=== PATIENT | male | born 1970 | race Caucasian/White ===

== ENCOUNTER 2024-04-30 06:27 | Emergency (ER) | payer OTHER ==
[~2024-04-30] VITALS: Ht 188 cm; Wt 118.2 kg
[2024-04-30 06:33] VITALS: TEMP 97.2
[2024-04-30] MEDS: ketorolac trometh 30MG/ML vial 30 MG/ML VIAL IM ONE (07:21)
[2024-04-30] MEDS ORDERED: iohexol 300mg/ml 100ml inj. ONE (07:55)
[2024-04-30] MEDS ORDERED: OXYC-145 PO (09:58)
[2024-04-30 10:07] VITALS: BP 128/70; PULSE 65; RESP 18; O2SAT 97
== END 2024-04-30 10:18 | disposition home or self-care (01) ==
LOC: ER 06:28
DX: S22.31XA Fracture of one rib, right side, initial encounter for closed fracture (principal); M25.511 Pain in right shoulder; Z88.2 Allergy status to sulfonamides; W01.0XXA Fall on same level from slipping, tripping and stumbling without subsequent striking against object, initial encounter; Y93.01 Activity, walking, marching and hiking; Y92.89 Other specified places as the place of occurrence of the external cause; Y99.8 Other external cause status
CPT/HCPCS: 71101; 71260; 73030; 74177; 96374; 99285; J1885; Q9967

== ENCOUNTER 2025-04-13 23:11 | Inpatient (IN) | payer OTHER, SELFPAY ==
[~2025-04-13] VITALS: Ht 188 cm; Wt 114.5 kg
[~2025-04-13 23:11] MED LIST: OXYC-145 PO
[2025-04-14 00:48] LABS: MEAN PLATELET VOLUME 7.7 FL (7.4-10.4); RED CELL DISTRIBUTION WIDTH 13.7 % (11.5-14.5)
[2025-04-14 01:04] LABS: CREATININE 0.98 MG/DL (0.60-1.10); TOTAL CARBON DIOXIDE 27.0 MMOL/L (24-32); eCRCL 99 ML/MIN; eGFR 79 ML/MIN
[2025-04-14 02:06] LABS: LEUKOCYTE ESTERASE ,URINE NEGATIVE (Neg); NITRITES, URINE NEGATIVE (Neg); OCCULT BLOOD,URINE NEGATIVE (Neg)
[2025-04-14 02:07] LABS: UA COLLECTION TYPE CLN CATCH MIDSTREAM
--- NOTE | 2025-04-14 02:17 | Physician Documentation ---
History of Present Illness Chief Complaint: Abdominal Pain w/vomiting Stated Complaint: ABD PAIN Time Seen by MD: 02:15 OK to notify your PCP?: Yes Primary Medical Doctor: ABHI Source: patient, RN/MD, RN notes reviewed Mode of Arrival: POV Exam Limitations: no limitations HPI This patient has a longstanding history of gallstones. Never really had problems eating necessarily. The patient states after dinner on giving he started having increasing pain but then woke up today with severe epigastric pain that was radiating to his back. The states his pain 7/10 he has vomited a few times. He has also had some chest discomfort. He denies any new medications no fevers or chills no other complaints. Medication Reconciliation Allergies: Coded Allergies: Sulfa (Sulfonamide Antibiotics) (Verified Allergy, Unknown, 04/30/24) Scheduled PRN Oxycodone HCl/Acetaminophen (Percocet 5-325 mg Tablet), 1-2 TABLET PO Q4H PRN for pain Past Medical History Past Medical History: Hypertension Past Surgical History: no surgical history Smoking Status: Never smoker Alcohol Use: None Drug Use: none Review of Systems All Other Systems at this time: Reviewed and Negative Physical Exam Vital Signs: RN Vital Signs have been reviewed: Yes, Temperature: 98.1, Source: Temporal, Heart Rate: 65, Respiratory Rate: 23, BP: 139/81, Pulse Oximetry: 94, Weight: 114.500 Oxygen Flow Rate: 0 Physical Exam General: The patient is well developed, well nourished, nontoxic appearing and is in no acute distress. Skin: [place], warm and dry with no rashes. HEENT: Head was normocephalic and atraumatic. Eyes - pupils equal, round, reactive to light and accommodation. Extraocular movements were intact. Conjunctivae were nonicteric. Ears - bilateral tympanic membranes were normal. The mouth and oropharynx were clear with moist mucous membranes. There were no pharyngeal exudates or erythema. Neck: Supple and nontender. There was no jugular venous distention, lymphadenopathy, thyromegaly or masses. Chest: Clear to auscultation bilaterally without wheezes, rales or rhonchi. No accessory muscle use. No dullness to percussion. Heart: Rate regular and rhythmic. S1, S2. No murmurs. Palpation of the chest wall was normal. No rubs or thrills. Abdomen: Right upper quadrant epigastric tenderness to palpation. Positive bowel sounds. No guarding or rebound. No hepatosplenomegaly or palpable masses. Clinically soft abdomen Extremities: No cyanosis, clubbing or edema. The patient moves all extremities. Pulses were equal and symmetric. Neurologic: Motor sensory grossly intact Psychologic: The patient was oriented to person, place and time. The patient demonstrated appropriate judgement and insight. Progress Results/Orders Reviewed/noted all lab results: Yes Results/Orders Orders - KRISTAN SMYTH MD Electrocardiogram (04/13/25 ) Completed Orders - KRISTAN SMYTH MD Urinalysis, Cult If Indicated (04/13/25 23:59) Cbc/Diff (04/13/25 23:59) BMP (04/13/25 23:59) Lipase (04/13/25 23:59) CMP (04/13/25 23:59) Vital Signs 04/13/25 04/14/25 04/14/25 04/14/25 23:54 00:12 00:12 01:45 Temp 98.1 Pulse 63 65 Resp 18 18 23 B/P (MAP) 145/78 139/81 (100) Pulse Ox 98 94 O2 Flow Rate 0 Laboratory Tests Test 04/14/25 00:34 04/14/25 01:45 White Blood Count 16.7 H Red Blood Count 5.29 Hemoglobin 14.8 Hematocrit 43.5 Mean Corpuscular Volume 82.4 Mean Corpuscular Hemoglobin 28.0 Mean Corpuscular Hemoglobin Concent 34.0 Red Cell Distribution Width 13.7 Platelet Count 316 Mean Platelet Volume 7.7 Neutrophils (%) (Auto) 86.5 H Lymphocytes (%) (Auto) 7.2 L Monocytes (%) (Auto) 5.5 Eosinophils (%) (Auto) 0.4 Basophils (%) (Auto) 0.4 Neutrophils # (Auto) 14.4 H Lymphocytes # (Auto) 1.2 Monocytes # (Auto) 0.9 Eosinophils # (Auto) 0.1 Basophils # (Auto) 0.1 CBC Comment Sodium Level 138 Potassium Level 3.6 Chloride Level 104 Carbon Dioxide Level 27.0 Anion Gap 7 L Blood Urea Nitrogen 17 Creatinine 0.98 Estimated GFR/1.73 m2 79 BUN/Creatinine Ratio 17.3 Glucose Level 97 Calcium Level 8.4 L Total Bilirubin 0.4 Aspartate Amino Transf (AST/SGOT) 18 Alanine Aminotransferase (ALT/SGPT) 23 Alkaline Phosphatase 58 Total Protein 8.0 Albumin 3.8 Globulin 4.2 Albumin/Globulin Ratio 0.9 L Lipase > 375 H Chemistry Comments Urine Specimen Description Cln catch midstream Urine Color Yellow Urine Clarity Clear Urine pH 6.5 Urine Specific [place] 1.020 Urine Protein Negative Urine Glucose (UA) Negative Urine Ketones Negative Urine Occult Blood Negative Urine Nitrite Negative Urine Bilirubin Negative Urine Urobilinogen 0.2 Urine Leukocyte Esterase Negative Urine Culture Indicated Not ind Volume Urine Centrifuged 10 ml Urine Comment Re-Evaluation Re-Evaluation : Re-Evaluation: Improved Progress Patient improved with pain medication. EKG/XRAY/CT/US/VASC/MRI EKG : Intepreting Monitor?: Yes Additional Comment 5 minutes after midnight. EKG shows normal sinus rhythm heart rate 62, QTC 407, good R-wave progression normal axis normal intervals. CT : CT: abdomen/pelvis With Contrast?: Yes Impression Exam: CT CT ABDOMEN PELVIS W/ IV CONTRAST History: ABD PAIN COMPARISON: CT CT CHEST ABDOMEN PELVIS IV CON on DOS: 04/30/24 Technique: Multidetector spiral CT of the abdomen and pelvis was performed from lung bases to pubic symphysis. Intravenous contrast was administered during this examination. Portal venous imaging was obtained. Axial, coronal and sagittal multiplanar reformats were performed by the technologist on a separate wo rkstation. Radiation Dose : 1. Abdomen/Pelvis: CTDIvol 36.47 mGy, DLP 1939.37 mGy*cm. CONTRAST: Type of contrast: Omniscan 300 Contrast injected: 100 ml Findings: Lung Bases: Moderate right pleural effusion and bibasilar atelectasis. Cardiomegaly. No pericardial effusion. Liver: The liver is enlarged, measuring 20.9 cm in craniocaudal dimension. No focal lesions. Normal hepatic vascular enhancement. Gallbladder and Biliary Tree: Cholelithiasis and gallbladder distention. Spleen: Unremarkable Pancreas: Moderate diffuse peripancreatic inflammatory change and free fluid consistent with sequelae of Acute pancreatitis. No definite evidence of pseudocyst, abscess or parenchymal necrosis. Adrenal Glands: Unremarkable Kidneys: No hydronephrosis. Bladder: Unremarkable Bowel: The stomach is grossly normal in appearance. Retained colorectal stool. Small bowel and colon are otherwise normal in caliber and distribution. The appendix is normal. Ascites: Absent Lymphadenopathy: No mesenteric, retroperitoneal or periportal lymphadenopathy. Abdominal Wall and Mesentery: Small fat containing umbilical hernia. Vasculature: The visualized abdominal aorta is normal in size and caliber. Abdominal and pelvic vessels demonstrate normal enhancement. Pelvic Organs: Unremarkable. Bilateral fat containing inguinal hernias. Musculoskeletal: No aggressive focal bony lesions, acute fractures or dislocation. IMPRESSION: 1. Acute pancreatitis without definite evidence of pseudocyst, abscess or parenchymal necrosis. 2. Cholelithiasis and gallbladder distention. 3. Hepatomegaly. 4. Moderate right pleural effusion and bibasilar atelectasis. 5. Retained colorectal stool. Radiation optimization: All CT scans at this facility use at least one of these dose optimization techniques: automated exposure control mA and/or kV adjustment per patient size (includes targeted exams where dose is matched to clinical indication) or iterative reconstruction. Medical Decision Making Additional information obtaine: old records Findings Patient was seen and examined. Patient is given reassurance. Patient's laboratory work shows a leukocytosis of 16.7 with a left shift of 86.5 no anemia patient was given Zosyn after blood cultures were obtained. Patient's procalcitonin is negative lactic acid is negative. Chemistries within normal limits. LFTs within normal limits except lipase is greater than 375 urine also was within normal limits cat scan showed gallstone pancreatitis. Patient was then admitted to the hospitalist service for further workup and care. Patient received fluids antibiotics pain meds. Continuous cardiac nurse specialist interpretation shows normal sinus rhythm heart rate 60s, no ectopy, normal, my interpretation. Pulse oximetry monitor interpretation shows normal oxygenation at 95% room air, normal, my interpretation. Differential Dx:Considerations: Aortic dissection, Appendicitis, Bowel obstruction, Cholangitis, Cholelithasis, Constipation, Diverticular disease, Esophageal rupture, Esophagitis, Gastritis/PUD, Gastroenteritis, GI hemorrhage, Hernia, Hepatitis, Inflammatory BD, Ischemic bowel, Pancreatitis, Porphyria, T esticular torsion, Trauma, intraabdominal, Urinary obstruction, Urinary tract infection, Urolithiasis Departure Disposition: ADMITTED INPATIENT Admitted to Inpatient Unit: yes, to hospitalist Admission Level of Care: PCU with Tele Impression: Primary Impression: Acute gallstone pancreatitis Condition: Guarded Referrals: NO PRIMARY CARE PROVIDER (PCP) Education Educated: Patient Educated regarding: diagnosis Signature Scribe Signature: The note accurately reflects work and decisions made by me.Kristan Smyth MD 04/14/25 04:02 Attestation: The note accurately reflects work and decisions made by me.Kristan Smyth MD 04/14/25 04:02 KRISTAN SMYTH MD Apr 14, 2025 02:17
[2025-04-14] MEDS ORDERED: iohexol 300mg/ml 100ml inj. ONE (02:26)
[2025-04-14] MEDS: piperacillin/tazo 3.375gm/50ml 50 ML IV ONE (02:49)
[2025-04-14] MEDS: normal saline 1000ML IV soln IVB ONE (02:50)
--- NOTE | 2025-04-14 03:27 | RADIOLOGY REPORT ---
Exam: CT CT ABDOMEN PELVIS W/ IV CONTRAST History: ABD PAIN COMPARISON: CT CT CHEST ABDOMEN PELVIS IV CON on DOS: 04/30/24 Technique: Multidetector spiral CT of the abdomen and pelvis was performed from lung bases to pubic symphysis. Intravenous contrast was administered during this examination. Portal venous imaging was obtained. Axial, coronal and sagittal multiplanar reformats were performed by the technologist on a separate workstation. Radiation Dose : 1. Abdomen/Pelvis: CTDIvol 36.47 mGy, DLP 1939.37 mGy*cm. CONTRAST: Type of contrast: Omniscan 300 Contrast injected: 100 ml Findings: Lung Bases: Moderate right pleural effusion and bibasilar atelectasis. Cardiomegaly. No pericardial effusion. Liver: The liver is enlarged, measuring 20.9 cm in craniocaudal dimension. No focal lesions. Normal hepatic vascular enhancement. Gallbladder and Biliary Tree: Cholelithiasis and gallbladder distention. Spleen: Unremarkable Pancreas: Moderate diffuse peripancreatic inflammatory change and free fluid consistent with sequelae of Acute pancreatitis. No definite evidence of pseudocyst, abscess or parenchymal necrosis. Adrenal Glands: Unremarkable Kidneys: No hydronephrosis. Bladder: Unremarkable Bowel: The stomach is grossly normal in appearance. Retained colorectal stool. Small bowel and colon are otherwise normal in caliber and distribution. The appendix is normal. Ascites: Absent Lymphadenopathy: No mesenteric, retroperitoneal or periportal lymphadenopathy. Abdominal Wall and Mesentery: Small fat containing umbilical hernia. Vasculature: The visualized abdominal aorta is normal in size and caliber. Abdominal and pelvic vessels demonstrate normal enhancement. Pelvic Organs: Unremarkable. Bilateral fat containing inguinal hernias. Musculoskeletal: No aggressive focal bony lesions, acute fractures or dislocation. IMPRESSION: 1. Acute pancreatitis without definite evidence of pseudocyst, abscess or parenchymal necrosis. 2. Cholelithiasis and gallbladder distention. 3. Hepatomegaly. 4. Moderate right pleural effusion and bibasilar atelectasis. 5. Retained colorectal stool. Radiation optimization: All CT scans at this facility use at least one of these dose optimization techniques: automated exposure control mA and/or kV adjustment per patient size (includes targeted exams where dose is matched to clinical indication) or iterative reconstruction.
[2025-04-14] MEDS ORDERED: FENO145T26 PO (04:42)
[2025-04-14] MEDS ORDERED: AMLO-708 PO (04:42)
[2025-04-14] MEDS ORDERED: magnesium sulf-water 2g/50mL 50 ML IV PRN (04:50)
[2025-04-14] MEDS ORDERED: magnesium sulf-water 4G/100mL 100 ML IV PRN (04:50)
[2025-04-14] MEDS ORDERED: magnesium hydroxide 30ml (MOM) UD suspension PO PRN (04:50)
[2025-04-14] MEDS ORDERED: magnesium Cl slow-release 64mg tablet PO PRN (04:50)
[2025-04-14] MEDS ORDERED: potassium Cl 20 mEq SR tablet PO PRN ×2 (04:50)
[2025-04-14] MEDS ORDERED: mag hydrox/Alum hydrox/simeth 30ml oral suspension PO PRN (04:50)
[2025-04-14] MEDS ORDERED: ondansetron/PF 4mg/2ml inj IV PRN (04:50)
--- NOTE | 2025-04-14 05:01 | HISTORY AND PHYSICAL-Residence ---
History & Physical Providers to CC Resident Creating Document: FRANCIS RAO, CARLYLE ~ History of Present Illness Primary Medical Doctor: ABHI Reason for Admit\Complaint: Abdominal pain History of Present Illness This is a 54-year-old male with medical history of hypertension, hyperlipidemia presents to the ED with complaints of abdominal pain. Patient reports that he started having epigastric pain after he finished having his dinner on night. Pain was 3/10 in intensity was radiating to the back, burning/tightness type of pain, was on and off until Tuesday when it became constant in nature. Patient did vomit 3-4 times since the pain started, vomitus mainly containing clear fluid, no food no blood seen. Patient did have his full meals on Tuesday with no associated discomfort but could not eat anything from Tuesday due to pain. Just before arriving to the ED receiving his pain medication he had a pain of 7/10 in intensity. Patient says that this is the 1st episode he is experiencing of this kind, never before had similar complaints. Patient denies any complaints of chest pain, palpitations, heartburn, reflux symptoms. Patient reports that a year ago imaging was done on him when he had rib injuries, and was told that he had gallstones. Allergies: Coded Allergies: Sulfa (Sulfonamide Antibiotics) (Verified Allergy, Unknown, 04/30/24) Home Medications Home Medications Active Reported Fenofibrate (Fenofibrate Nanocrystallized) 145 Mg Tablet 1 Tab PO DAILY Amlodipine Besylate 10 Mg Tablet 1 Tab PO DAILY Past Medical History Past Medical History Hypertension Hyperlipidemia Past Surgical History Surgical History Comment No significant surgical history Past Social History Social History Comment Patient drinks alcohol socially, mostly beer once a while. Patient never smoked No illicit drug use Patient lives at home with his PCP- [facility] Alcohol Use: None Drug Use: None ROS All Other Systems: Reviewed and Negative ROS Constitutional: Denies: no symptoms reported, Eyes: Denies: no symptoms reported ENT: Denies: no symptoms reported Respiratory: Denies: No symptoms reported Cardiovascular: Denies: No symptoms reported Gastrointestinal: Denies: MILD EPIGASTRIC PAIN Genitourinary: Denies: no symptoms reported Neurological: Denies: no symptoms reported Musculoskeletal: Denies: No symptoms reported Endocrine: Denies: no symptoms reported Exam Vitals: Vital Signs Date Time Temp Pulse Resp B/P (MAP) Pulse Ox O2 Delivery O2 Flow Rate FiO2 04/14/25 04:00 55 16 121/73 (89) 93 04/14/25 00:12 0 04/13/25 23:54 98.1 General: General: Awake, alert, oriented, not in acute distress, comfortably resting HEENT: Conjunctive are pink, sclerae clear, no icterus, Neck: Supple, no JVD, no lymphadenopathy. Chest: Normal vesicular breath sounds heard, no wheezing, crackles. Cardiovascular: S1-S2 heard no gallops, no rubs, no murmurs Abdomen: soft, obese, no tenderness, no guarding, no rigidity, no rebound tenderness. Ordoñez sign negative Extremities: No edema, no cyanosis, peripheral pulses well felt Central Nervous System: No focal neurological deficits Skin: Warm and dry. Diagnostic Data Last Recorded Lab Results: 04/14/25 0034 04/14/25 0034 Advance Care Planning Advanced Care plannin - 30 Minutes (Full code) Additional Plan Acute abdominal pain Likely due to underlying gallstone pancreatitis Cholelithiasis -Patient is meeting SIRS criteria with increased respiratory rate and WBC count, but is otherwise hemodynamically stable -WBC count 16.7, procal normal -lipase elevated > 375. We will trend lipase daily. -lactic acid normal -liver enzymes , bilirubin, alkaline phosphatase normal -CT abdomen shows Hepatomegaly Cholelithiasis and gallbladder distention Acute pancreatitis without definite evidence of pseudocyst, abscess or parenchymal necrosis However CT does not show any details about the bile duct. -started the patient on fluids LR 150 cc/hour -currently patient is NPO, advance diet as tolerated. -patient on pain control medications and antiemetics Hypertension- Currently blood pressure within the normal range Continue home medications once med rec is done Hyperlipidemia- Lipid panel has been ordered please follow-up Continue medications after med rec is done Disposition- patient being admitted to the PCU floor, currently he is hemodynamically stable, advance diet as tolerated, lipase to be trended daily. Continue to monitor him. Code status: Full code DVT profile: Subcu Heparin Diet: NPO Francis Reddivari PGY-1 Fusaro Addendum #1 Neuro: - Monitor for delirium #2 CV: The patient has a history of hypertension - If hemodynamically stable, continue home BP medications - Monitor blood pressure routinely to assess control #3 Pulm: - Encourage incentive spirometry use - Maintain O2 saturation >92% #4 GI: The patient has evidence of gallstone pancreatitis; differential diagnosis includes idiopathic, alcohol-related, drug-related, and hypertriglyceridemia. - Initiate IV fluids; monitor fluid status - Monitor fingerstick glucose levels - Measure triglyceride levels to assess for hypertriglyceridemia - Keep patient NPO - GI consult #5 Renal: - Monitor renal function for signs of acute kidney injury - Replete electrolytes as necessary #6 ID: - Monitor for signs of infection #7 Endo: - Maintain fingerstick glucose between 150-180 mg/dL The patient has a history of hyperlipidemia - Continue statin #8 Heme/Onc: - Monitor for bleeding and thrombosis - Keep hemoglobin >7 g/dL and platelets >10 x 10^3/L #9 PPx: - Administer chemical DVT prophylaxis unless contraindicated I saw this patient and completed a full visual exam via audio-visual HIPAA compliant technology. Date of Service: Apr 14, 2025 Billing Provider: SABA TURNER MD, PREETHI, RES Apr 14, 2025 05:01 SABA TURNER MD Apr 14, 2025 07:34
[2025-04-14] MEDS: ringers solution, lacted 1,000 ML IV SCH (06:00)
--- NOTE | 2025-04-14 08:02 | RADIOLOGY REPORT ---
INDICATION: RUQ pain TECHNIQUE: Multiple real-time sonographic images of the abdomen were obtained with attention on the right upper quadrant. COMPARISON: CT CT ABDOMEN PELVIS W/ IV CONTRAST on DOS: 04/14/25, CT CT CHEST ABDOMEN PELVIS IV CON on DOS: 04/30/24 FINDINGS: The liver is enlarged and demonstrates increased in echogenicity. Main portal vein is patent and demonstrates hepatopetal flow. No liver lesions. Normal liver surface contour. No intrahepatic biliary ductal dilatation is noted. The gallbladder wall measures 2.6 mm and is unremarkable. Cholelithiasis. Negative sonographic Ordoñez's sign. No pericholecystic fluid or edema. The common duct measures 0.6 cm and is unremarkable. The right kidney measures 11.2 cm. No hydronephrosis. The pancreas is not well visualized due to obscuration from bowel gas. IMPRESSION: Cholelithiasis without sonographic evidence of acute cholecystitis. Hepatomegaly and hepatic steatosis.
[2025-04-14] MEDS: K and/or MAG REPLACEMENT MC SCH (08:14)
[2025-04-14] MEDS: docusate sod 100mg capsule PO SCH (08:18)
[2025-04-14] MEDS: heparin, porcine 5000 units/ml vial SQ SCH (08:19)
[2025-04-14] MEDS ORDERED: NORMAL SALINE IV ONE (08:25)
[2025-04-14] MEDS ORDERED: SINCALIDE IV ONE (08:25)
[2025-04-14] MEDS ORDERED: morphine 4 MG/ML inj SYRINge IV PRN (09:15)
--- NOTE | 2025-04-14 11:13 | ELECTROCARDIOGRAPH REPORT ---
[facility] Test Date: 2025-04-14 Test Time: 00:05:09 Pat Name: LOBO GRIGSBY Department: [facility] Patient ID: [facility]-[id number] Room: [address] Gender: M Voice Instructor: : 1970 Requested By: KRISTAN SMYTH Order Number: [id number] Reading MD: Dr. Kristan Smyth Measurements Intervals [address] Rate: 62 P: 52 CT: 139 QRS: 0 QRSD: 96 T: 2 QT: 400 QTc: 407 Interpretive Statements Sinus rhythm Probable left atrial enlargement Baseline wander in lead(s) V3 Electronically Signed On 04-14-2025 18:30:[address] Kristan Smyth Please click the below link to view image of tracing.
[2025-04-14 11:46] VITALS: RESP 16; O2SAT 97
[2025-04-14 11:51] VITALS: BP 141/80; PULSE 62; RESP 16; TEMP 97.7; O2SAT 97
[2025-04-14] MEDS ORDERED: LISI20TA28 PO (12:21)
[2025-04-14] MEDS ORDERED: HYDROcodone/acetaminophen 5mg/325mg tablet PO PRN (12:30)
[2025-04-14] MEDS: HYDROcodone/acetaminophen 10/325mg tab PO PRN (13:01)
--- NOTE | 2025-04-14 15:42 | PROGRESS NOTE ---
Progress Note ID Providers to CC ~ Progress Note Progress Note: The patient was admitted in the gold cutter with gallstone pancreatitis and a white blood cell count 42670 with a left shift and a normal lactic acid the patient is afebrile is on Zosyn. The patient informs me last April that has discovered that the patient has a gallstones which was an incidental finding as the patient went to the ED for rib fractures the patient has been asymptomatic however after Thanksgiving dinner the patient developed a stabbing pain in his right upper quadrant I sent a text to Dr. Gamino his investigate if he wanted a HIDA scan for which I received response no HIDA scan. The patient is liver function tests and bilirubin are normal and both on the CT scan of the abdomen and pelvis and the abdominal ultrasound the common bile duct was normal diameter that is the patient does not have choledocholithiasis. That has no gallbladder wall thickening however due to the elevated white blood cell count the patient is on IV Zosyn- the patient is started on a clear liquid diet and will be advanced as tolerated to a very low-fat diet as the current recommendations for the past couple of years is two advanced diet as tolerated for acute pancreatitis however depending on the timeframe the doctor Hanny wants to take the patient to surgery obviously the patient will then need to be NPO. Gen. No acute distress alert and oriented 4 Lungs clear to ascultation bilaterally, no wheezes rales or rhonchi appreciated Heart normal sinus rhythm no murmurs rubs or clicks noted Abdomen soft mild right upper quadrant tenderness with a positive Ordoñez sign bowel sounds are normoactive Lower extremities no clubbing cyanosis, nor edema appreciated bilaterally Not an billable encounter- the patient was admitted after midnight. ABELARDO PATTERSON DO Apr 14, 2025 15:42
[2025-04-14] MEDS: piperacillin/tazo 4.5gm/100ml 100 ML IV SCH (16:10)
[2025-04-14] MEDS ORDERED: NEBI5TAB13 PO (16:19)
[2025-04-14 18:00] VITALS: BP 128/76; PULSE 67; RESP 17; TEMP 98.3; O2SAT 94
[2025-04-14 20:00] VITALS: RESP 17; O2SAT 94
[2025-04-14 22:00] VITALS: BP 130/75; PULSE 74; RESP 16; TEMP 98; O2SAT 94
[2025-04-15] VITALS (17 sets, daily range): BP systolic 134–198; BP diastolic 73–108; PULSE 73–84; RESP 10–27; TEMP 97.6–99.6; O2SAT 93–98
[2025-04-15 06:11] LABS: MEAN PLATELET VOLUME 8.4 FL (7.4-10.4); RED CELL DISTRIBUTION WIDTH 13.8 % (11.5-14.5)
[2025-04-15 06:35] LABS: CHOL/HDL RATIO 3.6 (0.00-4.99); CREATININE 1.04 MG/DL (0.60-1.10); LDL CHOLESTEROL 71 MG/DL (50-100); TOTAL CARBON DIOXIDE 26.5 MMOL/L (24-32); eCRCL 93 ML/MIN; eGFR 74 ML/MIN
[2025-04-15 07:22] LABS: PRE OP INR 1.1 INR; PRE OP PARTIAL THROMB. TIME 28.0 SECONDS (22-32); PRE OP PROTIME 11.0 SECONDS (9.0-12.0)
[2025-04-15] MEDS: potassium Cl 40MEQ/1/2NS 520ml 520 ML IV PRN (07:43)
--- NOTE | 2025-04-15 08:51 | RADIOLOGY REPORT ---
CHEST RADIOGRAPH Indication: PRE OP Technique: Single frontal view of the chest was obtained Comparison: CT CT CHEST ABDOMEN PELVIS IV CON on DOS: 04/30/24, DI UNI RIBS WITH PA CHEST on DOS: 04/30/24 FINDINGS: Lines and Tubes: None Lungs: No focal consolidation. Pleura: Moderate right pleural effusion No pneumothorax. Cardiomediastinal contours: Unremarkable Bones: No acute osseous abnormality. IMPRESSION: Moderate right pleural effusion
--- NOTE | 2025-04-15 10:19 | ELECTROCARDIOGRAPH REPORT ---
[facility] Test Date: 2025-04-15 Test Time: 10:16:56 Pat Name: LOBO GRIGSBY Department: [facility]N Room: [place] [address] [address] Gender: M Drafter (Cad) Electronic: VINCE : 1970 Requested By: MERCY FOLEY Order Number: [id number] Reading MD: Dr. SHIRA Steward Measurements Intervals [place] Rate: 72 P: 65 WV: 136 QRS: 48 QRSD: 93 T: 27 QT: 375 QTc: 411 Interpretive Statements Sinus rhythm Electronically Signed On 04-15-2025 17:34:[address] SHIRA Steward Please click the below link to view image of tracing.
--- NOTE | 2025-04-15 15:18 | PROGRESS NOTE ---
Progress Note ID Providers to CC ~ Progress Note Progress Note: pt seen and examined-findings consistent with gallstone pancreatitis-pt needs robo marina-possible open-discussed procedure including risks/benefits/alternatives MERCY FOLEY MD Apr 15, 2025 15:18
[2025-04-15] MEDS: dextrose 50%-water 50ml dispensing syringe IV ONE ×3 (18:30→18:46)
[2025-04-15] MEDS ORDERED: BUPIVAcaine 2.5mg/ml inj 50ml vial (contains preservative) ONE (19:59)
[2025-04-15] MEDS ORDERED: INDOCYANINE GREEN 25 MG/10 ML VIAL IV ONE (19:59)
[2025-04-15] MEDS ORDERED: labetalol 20mg/4ml (5mg/ml) syringe IV PRN (20:05)
[2025-04-15] MEDS ORDERED: morphine 4 MG/ML inj SYRINge IV PRN (20:05)
[2025-04-15] MEDS ORDERED: ondansetron/PF 4mg/2ml inj IV PRN ×2 (20:05→21:20)
[2025-04-15] MEDS: ringers solution, lacted 1,000 ML IV SCH (20:05)
[2025-04-15] MEDS ORDERED: HYDROmorphone/PF 0.2 MG/ML SYRINGE IV PRN ×2 (20:05)
--- NOTE | 2025-04-15 20:06 | PROGRESS NOTE ---
Daily Progress Note Providers to CC ~ Antibiotic Timeout Antibiotic Ordered?: Yes Subjective Was seen in presence of his today . patient was NPO waiting to go for the surgical procedure for gallstone pancreatitis with Objective Vital Signs Date Time Temp Pulse Resp B/P (MAP) Pulse Ox O2 Delivery O2 Flow Rate FiO2 04/15/25 18:29 97.5 81 10 95 04/15/25 10:19 140/83 (102) Room Air 04/15/25 09:34 0.0 Result Diagram: 04/15/2542604/15/25426 General-patient not in any acute distress, alert awake oriented, age- appropriate, looks comfortable HEENT-atraumatic normocephalic, neck supple without elevated JVD, no thyromegaly or carotid bruit. No lymphadenopathy bilaterally. Eyes-no icterus or pallor seen in eyes Chest-clear to auscultation bilaterally, breathing nonlabored no tachypnea, no wheezing, no crepitation, no crackles. Heart-S1-S2 normal, regular heart rate no murmur Abdomen bowel sounds positive on auscultation, soft nondistended , signs of mild tenderness present over right upper quadrant on palpation, no guarding, no rigidity Skin no active skin rash Neurology-grossly intact, nonfocal alert awake oriented Extremity- no pedal edema able to move all 4 extremities Psychiatry - patient is not confused or agitated cooperated during physical examination Coagulation Studies Laboratory Tests Test 04/15/25 06:42 Prothrombin Time 11.0 SECONDS (9.0-12.0) INR International Normalized Ratio 1.1 INR Activated Partial Thromboplast Time 28 SECONDS (22-32) Problem\Assessment\Plan The patient was admitted for gallstone pancreatitis and a white blood cell count [id number] with a left shift and a normal lactic acid the patient is afebrile is on Zosyn. The patient informs me last April that has discovered that the patient has a gallstones which was an incidental finding as the patient went to the ED for rib fractures the patient has been asymptomatic however after Thanksgiving dinner the patient developed a stabbing pain in his right upper quadrantThe patient is liver function tests and bilirubin are normal and both on the CT scan of the abdomen and pelvis and the abdominal ultrasound the common bile duct was normal diameter that is the patient does not have choledocholithiasis.That has no gallbladder wall thickening however due to the elevated white blood cell count the patient is on IV Zosyn. Acute abdominal pain Likely due to underlying gallstone pancreatitis Cholelithiasis -Patient is meeting SIRS criteria with increased respiratory rate and WBC count, but is otherwise hemodynamically stable -WBC count 16.7, procal normal -lipase elevated > 375. We will trend lipase daily. -lactic acid normal -liver enzymes , bilirubin, alkaline phosphatase normal -CT abdomen shows Hepatomegaly Cholelithiasis and gallbladder distention Acute pancreatitis without definite evidence of pseudocyst, abscess or parenchymal necrosis However CT does not show any details about the bile duct. -started the patient on fluids LR 150 cc/hour -currently patient is NPO, advance diet as tolerated. -patient on pain control medications and antiemetics 04/15-as per Dr. Mcbride patient needs robotic cholecystectomy/possible open cholecystectomy which he discussed with patient Hypertension- Currently blood pressure within the normal range On amlodipine, lisinopril and Nebivolol at home Hyperlipidemia- Lipid panel has been ordered please follow-up On fenofibrate 145 mg at home Patient's current condition is guarded we will continue to follow patient in a.m. further management as recommended by Dr. Gamino . Date of Service: Apr 15, 2025 Billing Provider: SHORTY SINGLETON MD Common Visit Codes: [id number] INP/OBS CARE(HIGH) SHORTY SINGLETON MD Apr 15, 2025 20:06
[2025-04-15] MEDS ORDERED: fentaNYL /PF 50mcg/ml 5ml ampule ONE (20:07)
[2025-04-15] MEDS ORDERED: midazolam 1 mg/ML 2ml injection ONE (20:07)
[2025-04-15] MEDS ORDERED: LIDOcaine 1%/PF 5ML 10 MG/ML VIAL ONE (20:28)
[2025-04-15] MEDS ORDERED: dexamethasone sod phosphate 4mg/ml inj. ONE (20:28)
[2025-04-15] MEDS ORDERED: ondansetron/PF 4mg/2ml inj ONE (20:28)
[2025-04-15] MEDS ORDERED: propofol inj 20 ML IV ONE (20:28)
[2025-04-15] MEDS ORDERED: rocuronium 10mg/ml inj IV ONE (20:28)
[2025-04-15] MEDS: BUPIVAcaine/PF 2.5 mg/ml (0.25%) 30ml vial IJ ONE (21:10)
[2025-04-15] MEDS ORDERED: albuterol 60 PUFF/8GM Inhaler (90mcg/1 puff) IH ONE (21:12)
--- NOTE | 2025-04-15 21:13 | OPERATIVE REPORT ---
Operative Report Providers to CC ~ Date of Procedure: Apr 15, 2025 Pre-Operative Diagnosis: gallstone pancreatitis Post-Operative Diagnosis SAME as PRE-Op Procedure Performed jaimee gray Surgeon: laney Varnisher Apprentice none Anesthesiologist: Hayde Schneider Type of Anesthesia: General Findings: distended gb Estimated Blood Loss: min Specimen Removed: gb MERCY FOLEY MD Apr 15, 2025 21:13
[2025-04-15] MEDS ORDERED: PCA WASTE DOCUMENTATION 1 MG ML MC SCH (21:20)
[2025-04-15] MEDS ORDERED: HYDROcodone/acetaminophen 10/325mg tab PO PRN (21:20)
[2025-04-15] MEDS ORDERED: HYDROmorphone inj. 0.5 MG/0.5 ML DISP.SYRIN IV PRN (21:20)
[2025-04-15] MEDS: acetaminophen 1,000mg/100ml IV 100 ML IV PRN (21:29)
[2025-04-15] MEDS: hydrALAZINE 20mg/ml inj. IV PRN (21:35)
[2025-04-15] MEDS: morphine 4 MG/ML inj SYRINge IV PRN (21:43)
[2025-04-16] VITALS (8 sets, daily range): BP systolic 126–147; BP diastolic 74–81; PULSE 65–81; RESP 14–18; TEMP 96.6–98.3; O2SAT 93–96
--- NOTE | 2025-04-16 03:58 | OPERATIVE REPORT ---
DATE OF SURGERY: 04/15/2025 DICTATING PHYSICIAN: Oleg Gamino MD PREOPERATIVE DIAGNOSIS: Gallstone pancreatitis. POSTOPERATIVE DIAGNOSIS: Gallstone pancreatitis. PROCEDURE PERFORMED: Robotic cholecystectomy. SURGEON: Oleg Gamino MD [employer] SUPERVISOR: Ceci. ANESTHESIA: General/Dr. Hayde Schneider DRAINS: None. INDICATIONS FOR OPERATION: The patient is a 54-year-old male who was seen with complaints of abdominal pain, found to have pancreatitis as well as cholelithiasis, taken to surgery for robotic cholecystectomy. INTRAOPERATIVE FINDINGS: Distended gallbladder. DESCRIPTION OF PROCEDURE: The patient was placed supine on the operating table. After induction of general anesthesia and placement of endotracheal tube, the abdomen was prepped and draped. A subxiphoid incision was then made and Dee port placed using an open technique and pneumoperitoneum was begun by insufflation of CO2. Additional ports were then placed in the lower abdomen. Robot was then brought to the field. Camera port docked, camera placed, camera targeted. Additional ports were then docked and instruments were placed. Abdomen was then explored. Adhesions were then taken down. Gallbladder fundus was grasped and retracted cephalad. Cystic duct identified, isolated, ligated, clipped and divided the cystic artery. The gallbladder was mobilized off the gallbladder fossa. Once hemostasis was found to be adequate, robotic instruments were removed. The robot was undocked and removed from the field. The gallbladder was placed in an Endobag using the laparoscope. Abdomen was then copiously irrigated with a large amount of antibiotic-containing solution. Ports were then removed. Under laparoscopic vision, there was no evidence of active bleeding, final port and camera withdrawn. Hemostasis was found to be adequate. Wounds were closed in layers. Skin was closed with subcuticular stitch. Dressing was applied. The patient was transferred to recovery room in stable condition after reversing from general anesthesia. Oleg Gamino MD TID: [id number] RECEIPT: [id number] JOSE/ELISABETH
[2025-04-16 05:02] LABS: MEAN PLATELET VOLUME 7.9 FL (7.4-10.4); RED CELL DISTRIBUTION WIDTH 13.8 % (11.5-14.5)
[2025-04-16 05:14] LABS: CREATININE 0.97 MG/DL (0.60-1.10); TOTAL CARBON DIOXIDE 25.1 MMOL/L (24-32); eCRCL 100 ML/MIN; eGFR 80 ML/MIN
--- NOTE | 2025-04-16 15:30 | PROGRESS NOTE ---
Progress Note ID Providers to CC ~ Progress Note Progress Note: doing well/home in am MERCY FOLEY MD Apr 16, 2025 15:30
--- NOTE | 2025-04-16 18:52 | PROGRESS NOTE ---
Daily Progress Note Providers to CC ~ Antibiotic Timeout Antibiotic Ordered?: Yes Subjective Patient was seen in his room he is feeling better able to pass gas and able to ambulate. As per Dr. Mcbride likely discharge in a.m. if clinically stable Objective Vital Signs Date Time Temp Pulse Resp B/P (MAP) Pulse Ox O2 Delivery O2 Flow Rate FiO2 04/16/25 10:25 97.9 80 16 136/75 (95) 95 Room Air 04/16/25 02:00 3.0 Result Diagram: 04/16/255 04/16/255 General-patient not in any acute distress, alert awake oriented, age- appropriate, looks comfortable HEENT-atraumatic normocephalic, neck supple without elevated JVD, no thyromegaly or carotid bruit. No lymphadenopathy bilaterally. Eyes-no icterus or pallor seen in eyes Chest-clear to auscultation bilaterally, breathing nonlabored no tachypnea, no wheezing, no crepitation, no crackles. Heart-S1-S2 normal, regular heart rate no murmur Abdomen bowel sounds positive on auscultation, soft nondistended , signs of mild tenderness present over right upper quadrant on palpation, no guarding, no rigidity Skin no active skin rash Neurology-grossly intact, nonfocal alert awake oriented Extremity- no pedal edema able to move all 4 extremities Psychiatry - patient is not confused or agitated cooperated during physical examination Coagulation Studies Laboratory Tests Test 04/15/25 06:42 Prothrombin Time 11.0 SECONDS (9.0-12.0) INR International Normalized Ratio 1.1 INR Activated Partial Thromboplast Time 28 SECONDS (22-32) Problem\Assessment\Plan The patient was admitted for gallstone pancreatitis and a white blood cell count [id number] with a left shift and a normal lactic acid the patient is afebrile is on Zosyn. The patient informs me last April that has discovered that the patient has a gallstones which was an incidental finding as the patient went to the ED for rib fractures the patient has been asymptomatic however after Thanksgiving dinner the patient developed a stabbing pain in his right upper quadrantThe patient is liver function tests and bilirubin are normal and both on the CT scan of the abdomen and pelvis and the abdominal ultrasound the common bile duct was normal diameter that is the patient does not have choledocholithiasis.That has no gallbladder wall thickening however due to the elevated white blood cell count the patient is on IV Zosyn. Acute abdominal pain Likely due to underlying gallstone pancreatitis Cholelithiasis -Patient is meeting SIRS criteria with increased respiratory rate and WBC count, but is otherwise hemodynamically stable -WBC count 16.7, procal normal -lipase elevated > 375. We will trend lipase daily. -lactic acid normal -liver enzymes , bilirubin, alkaline phosphatase normal -CT abdomen shows Hepatomegaly Cholelithiasis and gallbladder distention Acute pancreatitis without definite evidence of pseudocyst, abscess or parenchymal necrosis However CT does not show any details about the bile duct. -started the patient on fluids LR 150 cc/hour -currently patient is NPO, advance diet as tolerated. -patient on pain control medications and antiemetics 04/15-as per Dr. Mcbride patient needs robotic cholecystectomy/possible open cholecystectomy which he discussed with patient 04/16- he is feeling better able to pass gas and able to ambulate. As per Dr. Mcbride likely discharge in a.m. if clinically stable Hypertension- Currently blood pressure within the normal range On amlodipine, lisinopril and Nebivolol at home Hyperlipidemia- Lipid panel has been ordered please follow-up On fenofibrate 145 mg at home Patient's current condition is guarded we will continue to follow patient in a.m. further management as recommended by Dr. Gamino . Date of Service: Apr 16, 2025 Billing Provider: SHORTY SINGLETON MD Common Visit Codes: [id number] INP/OBS CARE(HIGH) SHORTY SINGLETON MD Apr 16, 2025 18:52
[2025-04-16] MEDS: magnesium hydroxide 30ml (MOM) UD suspension PO SCH (21:14)
[2025-04-16] MEDS: HYDROcodone/acetaminophen 5mg/325mg tablet PO PRN (21:50)
--- NOTE | 2025-04-17 01:33 | CONSULTATION ---
DATE OF CONSULTATION: 04/15/2025 DICTATING PHYSICIAN: Oleg Gamino MD REASON FOR CONSULTATION: Evaluation for possible laparoscopic cholecystectomy. HISTORY OF PRESENT ILLNESS: The patient is a 54-year-old male with hypertension, hyperlipidemia, presented to the ER with complaints of abdominal pain for a few days and had an elevated lipase. Workup revealed cholelithiasis. Surgical evaluation is now requested for possible laparoscopic cholecystectomy. The patient states pain is much improved at the present time. Minimal alcohol use at this point in time. of pancreatitis. PAST MEDICAL HISTORY: Hypertension and hyperlipidemia. PAST SURGICAL HISTORY: Negative. HOME MEDICATIONS: Fenofibrate and amlodipine. ALLERGIES: SULFA. SOCIAL HISTORY: Minimal alcohol use. REVIEW OF SYSTEMS: See H and P. PHYSICAL EXAMINATION: GENERAL: The patient is a well-nourished male, in minimal distress. VITAL SIGNS: Unremarkable. HEART: Regular rate and rhythm. LUNGS: Clear to auscultation. ABDOMEN: Benign. EXTREMITIES: Unremarkable. NEUROLOGIC: Nonfocal. LABORATORY DATA: WBC 12.8, hematocrit 38.6, platelet count 271. Chemistries: Lipase is elevated. Total bilirubin is 0.8. IMAGING STUDIES: Ultrasound revealed cholelithiasis. CT abdomen and pelvis revealed pancreatitis with cholelithiasis. IMPRESSION: * Gallstone pancreatitis. * Hypertension. * Hyperlipidemia. RECOMMENDATIONS: Robotic cholecystectomy, possible open. Oleg Gamion MD TID: [id number] RECEIPT: [id number] KB/DIV
[2025-04-17 06:00] VITALS: BP 125/74; PULSE 69; RESP 16; TEMP 97.7; O2SAT 95
[2025-04-17 06:04] LABS: MEAN PLATELET VOLUME 8.0 FL (7.4-10.4); RED CELL DISTRIBUTION WIDTH 13.6 % (11.5-14.5)
[2025-04-17 06:25] LABS: CREATININE 1.15 MG/DL (0.60-1.10); TOTAL CARBON DIOXIDE 30.5 MMOL/L (24-32); eCRCL 84 ML/MIN; eGFR 66 ML/MIN
[2025-04-17 08:00] VITALS: RESP 18; O2SAT 96
[2025-04-17 09:04] VITALS: BP_SYST 125; PULSE 69
[2025-04-17] MEDS ORDERED: ACET-1008 PO (11:38)
[2025-04-17] MEDS ORDERED: PANT40TA54 PO (11:39)
[2025-04-17] MEDS ORDERED: IBUP600T52 PO (11:39)
[2025-04-17] MEDS ORDERED: CIPR-259 PO (11:41)
[2025-04-17] MEDS ORDERED: METR-159 PO (11:41)
--- NOTE | 2025-04-17 16:22 | PROGRESS NOTE ---
Progress Note ID Providers to CC ~ Progress Note Progress Note: doing well/ok to dc MERCY FOLEY MD Apr 17, 2025 16:22
--- NOTE | 2025-04-17 17:05 | PATHOLOGY REPORT ---
[facility] [address] [place] [address] SURGICAL PATHOLOGY REPORT CaseNumber: [id number] Surgeon:Paulino Scott CLINICAL INFORMATION CLINICAL INFORMATION: ABD pain. DIAGNOSIS DIAGNOSIS: GALLBLADDER; ROBOTIC LAPAROSCOPIC CHOLECYSTECTOMY - CHOLELITHIASIS AND CHRONIC CHOLECYSTITIS MICROSCOPIC DESCRIPTION MICROSCOPIC DESCRIPTION: One slide is examined. Performed. GROSS DESCRIPTION GROSS DESCRIPTION: Received in a container of formalin labeled with the patient's name, number, and "gallbladder" is a disrupted gallbladder which measures 8 cm long by 3 cm in diameter. The serosa is smooth and purple-benavides. The surgical bed is unremarkable. Sectioning reveals a moderate amount of viscous dark green bile and a 2.3 cm benavides stone. The mucosa is red and granular with scattered yellow flecks present. A discrete mass lesion is not identified. The wall of the gallbladder measures up to 0.3 cm thick. Hat Liner sections of the neck and wall of the gallbladder are submitted as A1.The time at which the specimen was removed was 2099. The time at which the specimen was placed in formalin was 2108. (ctb) Electronically signed by: Timothy Barber M.D. 04/17/2025 4:31:00 PM
[2025-04-17] MEDS ORDERED: LEVO-65 PO (19:00)
--- NOTE | 2025-04-17 19:04 | DISCHARGE SUMMARY ---
Discharge Summary Providers to CC ~ Discharge Summary Admission Diagnosis: gallstone pancreatitis Hospital Course DATE OF ADMISSION: 04/14/25 DATE OF DISCHARGE:04/17/25 CBC testing done on April 17, 2025 WBC 13.6 hemoglobin 12.8 hematocrit 37.5 platelet count 301. Hemoglobin A1c 6.0. Procalcitonin 0.05 CMP done April 17, 2025 sodium 142 potassium 3.9 creatinine 1.15 GFR 66 AST 46 , normal rest of the liver enzymes. Lipase 114. Lipid panel showing triglyceride 87 total cholesterol 109 LDL 71 HDL 30. Blood culture showed no growth after three days. CHEST,SINGLE VIEWIMPRESSION: Moderate right pleural effusion ULTRASOUND OF ABDOMENIMPRESSION: Cholelithiasis without sonographic evidence of acute cholecystitis. Hepatomegaly and hepatic steatosis. CT ABDOMEN PELVISIMPRESSION: 1. Acute pancreatitis without definite evidence of pseudocyst, abscess or parenc hymal necrosis. 2. Cholelithiasis and gallbladder distention. 3. Hepatomegaly. 4. Moderate right pleural effusion and bibasilar atelectasis. 5. Retained colorectal stool. Discharge Diagnosis\Comment: Acute abdominal pain Likely due to underlying gallstone pancreatitis Cholelithiasis Hypertension Hyperlipidemia Moderate right pleural effusion Operations\Procedures: Robotic cholecystectomy. Consultants: Dr Oleg Gamino MD Complications: None Condition on DC: Stable New Medications: Ibuprofen (Ibuprofen) 600 Mg Tablet 1 TAB PO Q8H for pain for 5 Days, #15 TAB 0 Refills with food Levofloxacin (Levofloxacin) 500 Mg Tablet 500 MG PO DAILY for 5 Days, #5 TAB Metronidazole* (Flagyl*) 500 Mg Tablet 1 TAB PO BID for 5 Days, #10 TAB Pantoprazole Sodium (Pantoprazole Sodium) 40 Mg Tablet.dr 40 MG PO BKF for 7 Days, #7 TAB.SR Changed Medications: Acetaminophen (Tylenol) 325 Mg Tablet 1 TAB PO Q8H PRN for pain or fever for 15 Days, #30 TAB (Changed from: QDAY PRN; 30) Continued Medications: Amlodipine Besylate (Amlodipine Besylate) 10 Mg Tablet 1 TAB PO DAILY Fenofibrate Nanocrystallized (Fenofibrate) 145 Mg Tablet 1 TAB PO DAILY Lisinopril (Lisinopril) 20 Mg Tablet 1 TAB PO DAILY for 30 Days, #30 TAB Nebivolol HCl (Nebivolol HCl) 5 Mg Tablet 5 MG PO DAILY Discharge Summary: The patient was admitted for gallstone pancreatitis and a white blood cell count [id number] with a left shift and a normal lactic acid the patient is afebrile is on Zosyn. The patient informs me last April that has discovered that the patient has a gallstones which was an incidental finding as the patient went to the ED for rib fractures the patient has been asymptomatic however after Than ksgiving dinner the patient developed a stabbing pain in his right upper quadrantThe patient is liver function tests and bilirubin are normal and both on the CT scan of the abdomen and pelvis and the abdominal ultrasound the common bile duct was normal diameter that is the patient does not have choledocholithiasis.That has no gallbladder wall thickening however due to the elevated white blood cell count the patient is on IV Zosyn. Acute abdominal pain Likely due to underlying gallstone pancreatitis Cholelithiasis -Patient is meeting SIRS criteria with increased respiratory rate and WBC count, but is otherwise hemodynamically stable -WBC count 16.7, procal normal -lipase elevated > 375. We will trend lipase daily. -lactic acid normal -liver enzymes , bilirubin, alkaline phosphatase normal -CT abdomen shows Hepatomegaly Cholelithiasis and gallbladder distention Acute pancreatitis without definite evidence of pseudocyst, abscess or parenchymal necrosis However CT does not show any details about the bile duct. -started the patient on fluids LR 150 cc/hour -currently patient is NPO, advance diet as tolerated. -patient on pain control medications and antiemetics 04/15-as per Dr. Mcbride patient needs robotic cholecystectomy/possible open cholecystectomy which he discussed with patient 04/16- s/p robotic cholecystectomy. he is feeling better able to pass gas and able to ambulate. As per Dr. Mcbride likely discharge in a.m. if clinically stable Hypertension- Currently blood pressure within the normal range On amlodipine, lisinopril and Nebivolol at home Hyperlipidemia- Lipid panel has been ordered please follow-up On fenofibrate 145 mg at home Patient is feeling better he has been afebrile and getting discharged home in stable condition. Patient is seen and examined on the day of discharge. All labs, diagnostic workup and discharge plan discussed with patient in detail before her discharge. Dr. Mcbride is okay to discharge patient today. All questions and queries answered to the best of my professional medical knowledge. I heard patient's concerns and address appropriately. Patient was cleared by Physical therapy team for home discharge. sports betting manager Ellie involved in patient's discharge plan. Discharge instructions provided to the patient* Please follow up with PCP. * Dr Gamino to one week. Contact his office for an appointment . * No lifting greater than 10-15 lbs. for two weeks. * Repeat CBC BMP procalcitonin in five days with PCP . General-patient not in any acute distress, alert awake oriented, age- appropriate, looks comfortable HEENT-atraumatic normocephalic, neck supple without elevated JVD, no thyromegaly or carotid bruit. No lymphadenopathy bilaterally. Eyes-no icterus or pallor seen in eyes Chest-clear to auscultation bilaterally, breathing nonlabored no tachypnea, no wheezing, no crepitation, no crackles. Heart-S1-S2 normal, regular heart rate no murmur Abdomen bowel sounds positive on auscultation, soft nondistended , signs of mild tenderness present over right upper quadrant on palpation, no guarding, no rigidity Skin no active skin rash Neurology-grossly intact, nonfocal alert awake oriented Extremity- no pedal edema able to move all 4 extremities Psychiatry - patient is not confused or agitated cooperated during physical examination *Problems/Diagnosis: (1) Acute gallstone pancreatitis Status: Acute Total Time Spent on D/C: > 30 Minutes Date of Service: Apr 17, 2025 Billing Provider: SHORTY SINGLETON MD Common Visit Codes: [id number] DISCH DAY >30min SHORTY SINGLETON MD Apr 17, 2025 18:56
== END 2025-04-17 12:15 | disposition home or self-care (01) | DRG 417 ==
LOC: ER 23:11 → ED HOLD 04-14 04:21 → EDBEDREQTM 04-14 09:50 → EDBEDREQSVC 04-14 09:50 → SUR 3N 04-14 10:43
PROVIDERS: ADMIT Internal Medicine Pulmonary Disease; ATTEND Family Medicine
PROC: BW211ZZ Computerized Tomography (CT Scan) of Abdomen and Pelvis using Low Osmolar Contrast (ICD-10-PCS; 2025-04-14)
PROC: 8E0W4CZ Robotic Assisted Procedure of Trunk Region, Percutaneous Endoscopic Approach (ICD-10-PCS; 2025-04-15)
PROC: 0FT44ZZ Resection of Gallbladder, Percutaneous Endoscopic Approach (ICD-10-PCS; principal; 2025-04-15 20:02)
DX: K80.20 Calculus of gallbladder without cholecystitis without obstruction (principal); K85.10 Biliary acute pancreatitis without necrosis or infection; R65.10 Systemic inflammatory response syndrome (SIRS) of non-infectious origin without acute organ dysfunction; I10 Essential (primary) hypertension; R16.0 Hepatomegaly, not elsewhere classified; E78.5 Hyperlipidemia, unspecified; Z79.899 Other long term (current) drug therapy; Z88.2 Allergy status to sulfonamides
CPT/HCPCS: 99285; Z7506; Z7508; 36415; 71045; 74177; 76700; 80053; 80061; 81003; 82948; 83036; 83605; 83690; 83735; 84132; 84145; 85025; 85610; 85730; 87040; 87081; 93005; A4215; A4615; A4618; A6258; A6449; A7000; G0378; J0131; J0360; J1100; J1171; J1644; J2250; J2270; J2405; J2543; J2704; J3010; J3480; J3490; J7030; J7120; J7121; Q9967